=== PATIENT | female | born 1985 | race Caucasian/White ===

== ENCOUNTER 2019-10-03 11:47 | Emergency (ER) | payer MEDICAID ==
--- NOTE | 2019-10-03 12:33 | ED Physician Documentation ---
History of Present Illness - Stated complaint Stated Complaint: FACIAL SWELLING/VOMITING - Chief complaint Chief Complaint: Heent - Additonal information Additional information: This is a 34-year-old female who presents with right facial swelling. This is been ongoing for about a week. She noted some swelling along her upper gums. She stabbed this with a needle, and she has some drainage of pus. She has not been on any antibiotics. She does have some poor dentition on the right upper mouth which he thinks was a source of this infection. Her swelling in her face is actually gone down over the last day or 2, but has persisted. She has some tenderness throughout her face. No fever. Review of Systems Constitutional: reports: Fever Eyes: denies: Loss of vision Throat: reports: Dental pain / toothache Respiratory: denies: Dyspnea Skin: reports: Rash PD PAST MEDICAL HISTORY - Past Medical History Psych: Anxiety - Past Surgical History HEENT: Tonsil/Adenoidectomy - Present Medications Home Medications: Ambulatory Orders Medication Instructions Recorded Confirmed Chlorhexidine Gluconate [Peridex] 15 ml MM BID 7 Days #1 mouthwash 10/03/19 Clindamycin HCl [Clindamycin 300MG 300 mg PO Q6H #40 capsule 10/03/19 CAP] - Social History Does the pt smoke?: Yes Smoking Status: Current every day smoker Substance Use and Type: Other (Past meth and heroin use) PD ED PE NORMAL - Vitals Vital signs reviewed: Yes - General General: Alert and oriented X 3 - HEENT HEENT: Other (Facial swelling from just below the inferior right orbit down to the edge of the right mouth. there is a gingival abscess along the upper anterior gingiva with no spontaneous drainage. There is tooth decay in multiple locations. Patient has excellent range of motion of her neck, and opening closing of her jaw without trismus.) - Cardiac Cardiac: RRR - Respiratory Respiratory: No respiratory distress - Neuro Neuro: Alert and oriented X 3 Results - Vitals Vitals: Vital Signs - 24 hr 10/03/19 10/03/19 11:51 12:54 Temperature 36.5 C 36.8 C Heart Rate 78 81 Respiratory 16 18 Rate Blood Pressure 121/68 111/67 O2 Saturation 96 96 Oxygen O2 Source Room air Procedures - Abscess I&D (location) R upper gingiva Preparation: Lidocaine 1% Incision: Incised with scalpel, Purulent drainage, Loculations broken Other: Pt tolerated well, Antibiotic prescribed PD MEDICAL DECISION MAKING - ED course Complexity details: considered differential (Cellulitis, abscess, dental abscess, deep space infection) ED course: Pt is non-toxic, afebrile with normal vital signs, has an obvious gingival a bscess and facial cellulitis but no pain with ROM of the neck, no trismus, soft tongue and submandibular tissues, uvula is midline, no pain with eye movements to suggest more serious infection such as tray's, deep space infection, OIL EXPLORATION ENGINEER, or orbital cellulitis. Abscess was drained as noted above and patient tolerated this well. She was started on clindamycin and first dose given here. Peridex and clindamycin were prescribed and I reviewed strict return precautions including recheck within 24 hours unless patient is having significant improvement. Pt agreed to this plan and was discharged in the care of her mother. Departure - Departure Disposition: 01 Home, Self Care Clinical Impression: Gingival abscess Condition: Good Instructions: ED Dental Abscess Facial Cellulitis Follow-Up: Your,PCP and Dentist [Other] Prescriptions: Chlorhexidine Gluconate [Peridex] 15 ml MM BID 7 Days #1 mouthwash Clindamycin HCl [Clindamycin 300MG CAP] 300 mg PO Q6H #40 capsule Comments: You were seen today for an abscess along your gums. Please take the entire antibiotic as prescribed and use the Peridex mouthwash. If your symptoms are not improving tomorrow, or if they are worsening, return to the emergency department within 24 hours for a recheck. Also return if you are having difficulty moving your neck, pain with swallowing, fever, or other concerning symptoms. Please follow-up with your primary care provider and your dentist as soon as possible Discharge Date/Time: 10/03/19 13:42
[2019-10-03] MEDS ORDERED: CLINDAMYCIN 150 MG CAPSULE PO STA (12:50)
[2019-10-03] MEDS ORDERED: LIDOCAINE 1% 2 ML VIAL SUBQ STA (12:50)
[2019-10-03 12:55] VITALS: BP 111/67
== END 2019-10-03 13:42 | disposition home or self-care (01) ==
LOC: ED 11:47
DX: K05.319 Chronic periodontitis, localized, unspecified severity (principal); L03.211 Cellulitis of face; K02.9 Dental caries, unspecified
CPT/HCPCS: 41800; 99282; 99283; A9270

== ENCOUNTER 2020-04-04 02:46 | Outpatient (CLI) | payer MEDICAID | END 2020-04-04 02:47 | disposition EMS.NT | LOC: EMS 02:46 | PROVIDERS: ATTEND Surgery | DX: R41.82 Altered mental status, unspecified (principal) ==

== ENCOUNTER 2020-04-10 22:01 | Emergency (ER) | payer MEDICAID ==
[2020-04-10] MEDS ORDERED: AMOXICILLIN 250 MG CAPSULE PO STA (22:23)
--- NOTE | 2020-04-10 22:25 | ED Physician Documentation ---
PD HPI HEENT - Stated complaint Stated Complaint: RT SIDE FACE/JAW PX - Chief complaint Chief Complaint: Heent - History obtained from History obtained from: Patient - History of Present Illness Timing - onset: Other (She presents with dental pain, she is a vacillating and tangential historian. She says is been going on for years but also says she has a dental appointment tomorrow. Pain is of the upper right teeth and radiates to the right ear. She admits to using methamphetamines to make her feel good. She says that the only thing that takes away the pain.) Review of Systems Constitutional: denies: Fever, Chills Nose: denies: Rhinorrhea / runny nose, Congestion Throat: denies: Sore throat PD PAST MEDICAL HISTORY - Past Medical History Psych: Anxiety - Past Surgical History Past Surgical History: Yes HEENT: Tonsil/Adenoidectomy - Present Medications Home Medications: Ambulatory Orders Medication Instructions Recorded Confirmed Chlorhexidine Gluconate [Peridex] 15 ml MM BID 7 Days #1 mouthwash 10/03/19 Clindamycin HCl [Clindamycin 300MG 300 mg PO Q6H #40 capsule 10/03/19 CAP] Amoxicillin 500 mg PO TID #30 capsule 04/10/20 - Allergies Allergies/Adverse Reactions: Allergies Allergy/AdvReac Type Severity Reaction Status Date / Time No Known Drug Allergies Allergy Verified 04/10/20 22:06 - Social History Does the pt smoke?: Yes Smoking Status: Current every day smoker Does the pt drink ETOH?: Yes Does the pt have substance abuse?: Yes PD ED PE NORMAL - Vitals Vital signs reviewed: Yes - General General: Other (She is alert, mildly delusional. She is a tangential historian.) - HEENT HEENT: Other (Generally poor dentition, no tenderness or swelling. No trismus. TMs are normal.) - Neck Neck: Supple, no meningeal sign, No bony TTP - Neuro Neuro: Alert and oriented X 3, Normal speech Results - Vitals Vitals: Vital Signs - 24 hr 04/10/20 22:06 Temperature 36.6 C Heart Rate 85 Respiratory 14 Rate Blood Pressure 130/100 H O2 Saturation 100 Oxygen O2 Source Room air PD MEDICAL DECISION MAKING - ED course ED course: 34-year-old woman presents with dental pain of unclear chronicity. She admits to being high on methamphetamines. She denies that this is a problem for her and declines to stay in the emergency department to talk to the social sciences research scientist about it. Departure - Departure Disposition: 01 Home, Self Care Clinical Impression: Pain due to dental caries, Methamphetamine intoxication Condition: Good Record reviewed to determine appropriate education?: Yes Instructions: Abuse Meth Abuse and Addiction, ED Tooth Pain Prescriptions: Amoxicillin 500 mg PO TID #30 capsule Comments: You were seen today for a dental infection which appears fairly mild, my understanding is you have an appointment with a dentist tomorrow which you should keep. You also apparently are high on methamphetamines. I have offered to have you stay in the emergency department to talk to the social sciences research scientist which you declined. You stated that you do not want any help with your methamphetamine abuse. I hope you reconsider someday. The methamphetamines are Making your mind mush.
[2020-04-10 22:49] VITALS: BP 138/103
== END 2020-04-10 22:46 | disposition home or self-care (01) ==
LOC: ED 22:01
DX: K02.9 Dental caries, unspecified (principal); K04.7 Periapical abscess without sinus; F15.929 Other stimulant use, unspecified with intoxication, unspecified; F17.200 Nicotine dependence, unspecified, uncomplicated
CPT/HCPCS: 99282; 99283; A9270

== ENCOUNTER 2020-04-11 14:41 | Outpatient (CLI) | payer MEDICAID | END 2020-04-11 14:42 | disposition critical access hospital (66) | LOC: EMS 14:41 | PROVIDERS: ATTEND Surgery | DX: R46.89 Other symptoms and signs involving appearance and behavior (principal); R44.1 Visual hallucinations | CPT/HCPCS: A0425; A0429; A0999 ==

== ENCOUNTER 2020-04-11 14:56 | Observation (INO) | payer MEDICAID ==
--- NOTE | 2020-04-11 15:02 | ED Physician Documentation ---
PD HPI MHE - Stated complaint Stated Complaint: MHE - History obtained from History obtained from: Patient, EMS - History of Present Illness Primary symptom: Other (34-year-old woman brought in by ambulance because she was wandering in the street today. I saw her last night for dental pain which time she admitted to methamphetamine use but did not want any help with it. Today I guess she was wandering in the street and acting odd. For me she is minimally verbal, she is just staring a lot, she was more verbal last night. No significant history is available from the patient.) Review of Systems Unable to obtain: Confused PD PAST MEDICAL HISTORY - Past Medical History Psych: Anxiety - Past Surgical History Past Surgical History: Yes HEENT: Tonsil/Adenoidectomy - Allergies Allergies/Adverse Reactions: Allergies Allergy/AdvReac Type Severity Reaction Status Date / Time No Known Drug Allergies Allergy Verified 04/11/20 16:07 - Social History Does the pt smoke?: Yes Smoking Status: Current every day smoker Does the pt drink ETOH?: Yes Does the pt have substance abuse?: Yes PD ED PE NORMAL - Vitals Vital signs reviewed: Yes - General General: Other (Intense tearing, wandering in the halls, does cooperate with exam now.) - HEENT HEENT: PERRL, EOMI - Neck Neck: Supple, no meningeal sign, No bony TTP - Cardiac Cardiac: RRR, No murmur - Respiratory Respiratory: No respiratory distress, Clear bilaterally - Abdomen Abdomen: Normal bowel sounds, Soft, Non tender - Back Back: No CVA TTP, No spinal TTP - Derm Derm: Normal color - Extremities Extremities: No deformity, No tenderness to palpate - Neuro Neuro: No motor deficit, No sensory deficit, Other (Normal gait) Results - Vitals Vitals: Vital Signs - 24 hr 04/11/20 14:56 Temperature 36.2 C L Heart Rate 112 H Respiratory 16 Rate Blood Pressure 126/79 O2 Saturation 99 Oxygen O2 Source Room air - Labs Labs: Laboratory Tests 04/11/20 04/11/20 04/11/20 15:02 15:35 15:35 WBC 12.2 H RBC 4.67 Hgb 14.4 Hct 43.3 MCV 92.7 MCH 30.8 MCHC 33.3 RDW 16.4 H Plt Count 317 MPV 9.5 Neut # (Auto) 8.4 H Lymph # (Auto) 2.7 Saunders # (Auto) 0.8 Eos # (Auto) 0.1 Baso # (Auto) 0.1 Absolute Nucleated RBC 0.00 Nucleated RBC % 0.0 Sodium 134 L Potassium 4.2 Chloride 93 L Carbon Dioxide 28 Anion Gap 13.0 BUN 14 Creatinine 1.9 H Estimated GFR (MDRD) 31 L Glucose 88 Calcium 10.2 Total Bilirubin 1.1 H AST 99 H ALT 65 H Alkaline Phosphatase 57 Total Creatine Kinase 1408 H* Total Protein 8.9 H Albumin 5.2 Globulin 3.7 Albumin/Globulin Ratio 1.4 Lipase 25 Salicylates < 6.0 Urine Opiates Screen POSITIVE H Ur Oxycodone Screen NEGATIVE Urine Methadone Screen NEGATIVE Ur Propoxyphene Screen NEGATIVE Acetaminophen < 10 L Ur Barbiturates Screen NEGATIVE Ur Tricyclics Screen NEGATIVE Ur Phencyclidine Scrn NEGATIVE Ur Amphetamine Screen POSITIVE H U Methamphetamines Scrn POSITIVE H U Benzodiazepines Scrn NEGATIVE Urine Cocaine Screen NEGATIVE U Cannabinoids Screen NEGATIVE Ethyl Alcohol < 5.0 PD MEDICAL DECISION MAKING - ED course ED course: 34-year-old woman found wandering the streets apparently high on methamphetamines, not a great historian. Wandering around the department but cooperative. Found to be in rhabdomyolysis with elevated creatinine. Spoke with Dr. Toribio for observation at 4:06 PM. Departure - Departure Disposition: ED Place in Observation Clinical Impression: Methamphetamine intoxication Rhabdomyolysis Qualifiers: Rhabdomyolysis type: non-traumatic Qualified Code(s): M62.82 - Rhabdomyolysis Condition: Serious
[2020-04-11 15:29] LABS: MUDS CUTOFF CONCENTRATIONS CUTOFF CONC BELOW:
[2020-04-11 15:40] LABS: BASOPHILS # (AUTO) 0.1 10^3/uL (0.0-0.1); BASOPHILS % (AUTO) 0.7 %; EOSINOPHILS # (AUTO) 0.1 10^3/uL (0.0-0.7); EOSINOPHILS % (AUTO) 0.5 %; HGB - HEMOGLOBIN 14.4 g/dL (12.0-16.0); LYMPHOCYTES # (AUTO) 2.7 10^3/uL (1.5-3.5); LYMPHOCYTES % (AUTO) 22.4 %; MEAN CORPUSCULAR HEMOGLOBIN 30.8 pg (27.0-31.0); MEAN CORPUSCULAR HGB CONC 33.3 g/dL (32.0-36.0); MEAN CORPUSCULAR VOLUME 92.7 fL (81.0-99.0); MEAN PLATELET VOLUME 9.5 fL (7.9-10.8); MONOCYTES # (AUTO) 0.8 10^3/uL (0.0-1.0); MONOCYTES % (AUTO) 6.6 %; NEUTROPHILS # (AUTO) 8.4 10^3/uL (1.5-6.6); NEUTROPHILS % (AUTO) 69.1 %; PLT - PLATELET COUNT 317 10^3/uL (130-450); RED BLOOD COUNT 4.67 10^6/uL (4.20-5.40); RED CELL DISTRIBUTION WIDTH 16.4 % (12.0-15.0); WHITE BLOOD COUNT 12.2 x10^3/uL (4.8-10.8)
[2020-04-11 15:44] LABS: AMPHETAMINE SCREEN,URINE POSITIVE (NEGATIVE); BENZODIAZEPINES SCREEN, URINE NEGATIVE (NEGATIVE); COCAINE SCREEN URINE NEGATIVE (NEGATIVE); METHADONE SCREEN, URINE NEGATIVE (NEGATIVE); METHAMPHETAMINES SCREEN, URINE POSITIVE (NEGATIVE); OPIATE SCREEN, URINE POSITIVE (NEGATIVE); OXYCODONE SCREEN, URINE NEGATIVE (NEGATIVE); PROPOXYPHENE SCREEN, URINE NEGATIVE (NEGATIVE); TRICYCLIC ANTIDEPRESSANT,URINE NEGATIVE (NEGATIVE)
[2020-04-11 16:05] LABS: ACETAMINOPHEN < 10 ug/mL (10-30); ALBUMIN 5.2 g/dL (3.2-5.5); ALBUMIN/GLOBULIN RATIO 1.4 (1.0-2.2); ALKALINE PHOSPHATASE 57 IU/L (42-121); ALT ALANINE AMINOTRANSFERASE 65 IU/L (10-60); AST ASPARTATE AMINOTRANSFERASE 99 IU/L (10-42); BILIRUBIN,TOTAL 1.1 mg/dL (0.2-1.0); BUN - BLOOD UREA NITROGEN 14 mg/dL (6-20); CALCIUM 10.2 mg/dL (8.5-10.3); CARBON DIOXIDE - CO2 28 mmol/L (21-32); CHLORIDE 93 mmol/L (101-111); CREATININE 1.9 mg/dL (0.4-1.0); GLUCOSE 88 mg/dL (70-100); LIPASE 25 U/L (22-51); SALICYLATE < 6.0 mg/dL; SODIUM 134 mmol/L (135-145); TOTAL PROTEIN 8.9 g/dL (6.7-8.2)
[2020-04-11 16:07] LABS: CK- CREATINE KINASE 1408 IU/L (22-269)
[2020-04-11] MEDS ORDERED: SODIUM CHLORIDE 0.9% 1,000 ML IV STA ×2 (16:07)
[2020-04-11] MEDS ORDERED: ONDANSETRON 4 MG/2 ML VIAL IVP PRN (16:09)
[2020-04-11] MEDS ORDERED: ACETAMINOPHEN 325 MG TABLET PO PRN (16:09)
[2020-04-11] MEDS ORDERED: LACTATED RINGERS 1,000 ML IV ONE (16:12)
[2020-04-11] MEDS ORDERED: LORazepam 2 MG/ML VIAL IM STA (16:16)
--- NOTE | 2020-04-11 16:19 | HISTORY & PHYSICAL EXAMINATION ---
Chief Complaint - Chief Complaint Chief Complaint: I have something in belly History of Present Illness - Admitted From Admitted From:: Home - History Obtained From Records Reviewed: Yes History obtained from: ER Physician, EMR Exam Limitations: She is very tangential and a poor historian. - History of Present Illness HPI Comment/Other: This is a 34-year-old female with history of methamphetamine abuse who presents today after being found wandering in the streets. History is obtained from the emergency room provider and the EMR as the patient is unable to provide a history as her speech is quite tangential and she is a poor historian. She was seen in the emerge department last night for dental pain at that time she is found to be intoxicated as well. She was prescribed amoxicillin for possible dental infection. She returns today to the emergency department after she was found wandering in the streets. She has been walking around the emergency department. She has not been aggressive or agitated. He states that she is here in the hospital because there is something in her belly that needs to come out. She reports using meth yesterday but denies any use today. She does not inject and reports only smoking it. She states she does want to quit. She denies any chest pain, dyspnea, abdominal pain. Reports smoking a pack of cigarettes a day. Denies alcohol use. She currently reports no dental pain. In the emergency department, initial vital signs showed she was afebrile temperature of 36.2 C. She was tachycardic with a heart of 112. Her blood pressure is 126/79. She was not tachypneic and saturating well on room air. Labs revealed a white count of 12.2. Her sodium was decreased at 134. Her creatinine is elevated at 1.9. Her LFTs are slightly elevated. CKs were elevated at 1400. Urine toxicology was positive for methamphetamines and opiates. Tylenol, alcohol and salicylates were negative. Given the acute kidney injury and rhabdomyolysis, medicine was consulted for admission. History - Past Medical History Psych: reports: Anxiety Other Past Medical History: Methamphetamine abuse - Past Surgical History HEENT: reports: Tonsil/Adenoidectomy - Family & Social History Family History Comment/Other: Believes her brother and mother are healthy. Living arrangement: At home Living Situation: With family Social History Notes: He lives at home with her brother and mother. She states she works at [employer]. Reports smoking a pack a day since the age of 16. Denies alcohol use. Reports methamphetamine use with last use being yesterday April 10. Denies any other drug use. - Substance History Abuse: Recurrent use of substance despite neg consequences: Amphetamine Abuse Issues: Intoxication Meds/Allgy - Allergies Allergies/Adverse Reactions: Allergies Allergy/AdvReac Type Severity Reaction Status Date / Time No Known Drug Allergies Allergy Verified 04/11/20 16:07 Review of Systems - Cardiovascular Cariovascular: denies: Chest pain - Respiratory Respiratory: denies: SOB at rest - Gastrointestinal Gastrointestinal: denies: Abdominal pain - Musculoskeletal Musculoskeletal: denies: Muscle pain - Psychiatric Psychiatric: reports: Hallucinations - All Other Systems All Other Systems: reports: Other (Review of systems is limited given she is a poor historian and does not answer questions and is quite tangential.) Prior Level of Functionality: She is independent with her ADLs. Exam - Vital Signs Vital Signs: Vital Signs x48h Temp Pulse Resp BP Pulse Ox 04/11/20 14:56 36.2 C L 112 H 16 126/79 99 - Physical Exam General Appearance: positive: No acute distress, Other (She is in a euphoric state walking around the emergency department. She is not combative or aggressive.) Extremities: positive: Full ROM Neurologic/Psychiatric: positive: Other (She has pressured speech and tangential thoughts. No focal deficits on exam.) Conclusion/Plan - Problem List (1) Methamphetamine intoxication Conclusion/Plan: She is clearly intoxicated and presents with euphoria, hallucinations, and tangential speech. She also has rhabdomyolysis secondary to the methamphetamines. Urine drug screen is also positive for opiates. Will use IV lorazepam as needed for agitation. Consult social work to help address her methamphetamine abuse. (2) Rhabdomyolysis Conclusion/Plan: Secondary to methamphetamines. CKs elevated at 1400. She also has acute kidney injury. Hydrated with lactated Ringer's at 200 mL an hour. We will administer 2 L of crystalloid. Trend her CKs. Qualifiers: Rhabdomyolysis type: non-traumatic Qualified Code(s): M62.82 - Rhabdomyolysis (3) Acute kidney injury Conclusion/Plan: Secondary to her rhabdomyolysis. Her creatinine is elevated at 1.9. There is no prior baseline available. Continue with aggressive hydration. (4) Transaminitis Conclusion/Plan: LFTs are slightly elevated and this likely due to the rhabdomyolysis as well as her methamphetamine use. We will trend her LFTs. If they rise, will obtain acute hepatitis panel. (5) Leukocytosis Conclusion/Plan: This is likely reactive due to her methamphetamine intoxication. We will monitor for fever and recheck a white count tomorrow. (6) Pain due to dental caries Conclusion/Plan: She was started on amoxicillin yesterday in the emergency department for possible dental infection. We will continue her on Augmentin twice daily for the time being until we can obtain a more reliable history. - Lab Results Lab results reviewed: Yes Fish Bones: 04/11/20 15:35 04/11/20 15:35 Core Measures - Anticipated LOS I expect patient to be DC'd or transferred within 96 hours.: Yes - Issues Hospital Issues and Management Plan: 34-year-old female presents with acute methamphetamine intoxication found to have rhabdomyolysis and acute kidney injury. She will be admitted for IV fluids. - DVT/VTE - Prophylaxis VTE/DVT Device ordered at admit?: Yes VTE/DVT Prophylaxis med ordered at admit?: Yes
[2020-04-11] MEDS ORDERED: OLANZapine 10 MG VIAL IM STA (16:52)
[2020-04-11] MEDS: LORazepam 2 MG/ML VIAL IVP PRN ×2 (20:45→21:43)
[2020-04-11] MEDS: AMOX/CLAV 875 MG/125 MG TABLET PO SCH (21:34)
[2020-04-11] MEDS: HEPARIN 5,000 UNIT/ML VIAL SUBQ SCH (21:36)
[2020-04-11] MEDS: LACTATED RINGERS 1,000 ML IV SCH (21:40)
[2020-04-11] MEDS: SODIUM CHLORIDE FLUSH 0.9% 10 ML SYRINGE IVP SCH (21:41)
[2020-04-12] MEDS: LORazepam 2 MG/ML VIAL IVP PRN ×3 (00:38→05:40)
[2020-04-12] MEDS: SODIUM CHLORIDE FLUSH 0.9% 10 ML SYRINGE IVP SCH ×3 (00:41→18:04)
[2020-04-12] MEDS: SODIUM CHLORIDE FLUSH 0.9% 10 ML SYRINGE IVP PRN ×2 (01:10→05:41)
[2020-04-12] MEDS: LACTATED RINGERS 1,000 ML IV SCH ×5 (02:41→18:04)
[2020-04-12 06:48] LABS: BASOPHILS # (AUTO) 0.1 10^3/uL (0.0-0.1); BASOPHILS % (AUTO) 0.6 %; EOSINOPHILS # (AUTO) 0.2 10^3/uL (0.0-0.7); EOSINOPHILS % (AUTO) 1.6 %; HGB - HEMOGLOBIN 12.4 g/dL (12.0-16.0); LYMPHOCYTES # (AUTO) 5.1 10^3/uL (1.5-3.5); LYMPHOCYTES % (AUTO) 49.2 %; MEAN CORPUSCULAR HGB CONC 31.9 g/dL (32.0-36.0); MEAN CORPUSCULAR VOLUME 94.2 fL (81.0-99.0); MEAN PLATELET VOLUME 9.5 fL (7.9-10.8); MONOCYTES # (AUTO) 0.5 10^3/uL (0.0-1.0); MONOCYTES % (AUTO) 4.9 %; NEUTROPHILS # (AUTO) 4.5 10^3/uL (1.5-6.6); NEUTROPHILS % (AUTO) 43.1 %; PLT - PLATELET COUNT 207 10^3/uL (130-450); RED BLOOD COUNT 4.13 10^6/uL (4.20-5.40); RED CELL DISTRIBUTION WIDTH 16.4 % (12.0-15.0); WHITE BLOOD COUNT 10.5 x10^3/uL (4.8-10.8)
--- NOTE | 2020-04-12 06:58 | PHARMACY PROGRESS NOTE ---
- Best Possible Medication History Admit Date and Time: 04/11/20 1609 Processed by: Pharmacy Medication History completed: Yes Secondary Source(s): Pharmacy records, Insurance records As the person ultimately responsible for medication therapy, providers are able to order a medication from an existing home medication list in [facility] via the "Reconcile Routine" prior to Confirmation of that medication by community support associate. Such practice is discouraged except when the physician, in their clinical judgment, deems that a medical need exists for a medication without regard to previous use.
[2020-04-12 07:12] LABS: ALBUMIN 3.6 g/dL (3.2-5.5); BILIRUBIN,DIRECT 0.1 mg/dL (0.1-0.5); BILIRUBIN,TOTAL 0.8 mg/dL (0.2-1.0); CALCIUM 8.6 mg/dL (8.5-10.3); CREATININE 1.3 mg/dL (0.4-1.0); TOTAL PROTEIN 6.3 g/dL (6.7-8.2)
[2020-04-12] MEDS: HEPARIN 5,000 UNIT/ML VIAL SUBQ SCH ×2 (08:05→20:47)
[2020-04-12] MEDS: AMOX/CLAV 875 MG/125 MG TABLET PO SCH ×2 (08:05→20:48)
[2020-04-12 08:23] LABS: DIFFERENTIAL COMMENT MANUAL=AUTO DIFF; PLATELET ESTIMATE, MANUAL NORMAL (130-450,000) (NORMAL); PLATELET MORPHOLOGY NORMAL APPEARANCE (NORMAL); RBC MORPHOLOGY (MULTIPLE) 1+ HYPOCHROMASIA (NORMAL)
[2020-04-12] MEDS ORDERED: LEVOTHYROXINE 100 MCG TABLET PO SCH (10:00)
--- NOTE | 2020-04-12 10:42 | PROVIDER PROGRESS NOTE ---
Subjective - Prog Note Date Prog Note Date: 04/12/20 - Subjective Subjective: She was having hallucinations overnight and was roaming the hallways. She did receive Ativan to help sedate her. Morning, she is falling asleep as I talk to her but then will quickly wake up. She is tearful at times. She is requesting putting and is excited to eat breakfast. She denies pain. Current Medications - Current Medications Current Medications: Active Medications Acetaminophen (Tylenol) 650 mg PO Q4HR PRN PRN Reason: Pain 1 to 4 Amoxicillin/Clavulanate Potassium (Augmentin 875/125) 1 tab PO BID [facility] [place] Last Admin: 04/12/20 08:05 Dose: 1 tab Heparin Sodium (Porcine) () 5,000 unit SUBQ BID [facility] [place] Last Admin: 04/12/20 08:05 Dose: 5,000 unit Lactated Ringer's (Lr) 1,000 mls @ 200 mls/hr IV .Q5H [facility] [place] Last Admin: 04/12/20 08:06 Dose: 200 mls/hr Lorazepam (Ativan Inj (Vial)) 1 mg IVP Q4H PRN PRN Reason: Agitation Last Admin: 04/12/20 05:40 Dose: 1 mg Lorazepam (Ativan Inj (Vial)) 3 mg IVP Q3H PRN PRN Reason: Agitation Last Admin: 04/12/20 00:38 Dose: 3 mg Ondansetron HCl (Zofran Inj) 4 mg IVP Q6HR PRN PRN Reason: Nausea / Vomiting Sodium Chloride (Normal Saline Flush 0.9%) 10 ml IVP PRN PRN PRN Reason: NEEDED PER PROVIDER ORDERS Last Admin: 04/12/20 05:41 Dose: 10 ml Sodium Chloride (Normal Saline Flush 0.9%) 10 ml IVP 0100,0900,1700 [facility] [place] Last Admin: 04/12/20 08:07 Dose: Not Given No Known Home Medications 04/12/20 Objective - Vital Signs/Intake & Output Reviewed Vital Signs: Yes Vital Signs: Vital Signs x48h Pulse Resp BP Pulse Ox 04/12/20 09:00 80 18 118/79 95 04/12/20 05:00 70 16 95/70 94 Intake & Output: Intake & Output 04/09/20 04/10/20 04/11/20 04/12/20 23:59 23:59 23:59 23:59 Intake Total 4166.667 2012.333 Output Total 1300 500 Balance 2866.667 1513.333 - Objective General Appearance: positive: Lethargic, Other (She is lethargic and does fall asleep easily but will also wake up when she is spoken to. Her speech is slow at times.) Eyes Bilateral: positive: Normal inspection Respiratory: positive: No respiratory distress Cardiovascular: negative: Tachycardia Extremities: positive: No pedal edema. negative: Amparo's sign/cords Neurologic/Psychiatric: positive: Other (He has no focal motor deficits is mo ving all 4 extremities. She is tearful at times with a depressed mood. No clonus.) - Lab Results Fish Bones: 04/12/20 06:36 04/12/20 06:36 Other Labs: Lab Results x24hrs 04/12/20 04/12/20 04/11/20 Range/Units 06:36 06:36 15:35 WBC 10.5 (4.8-10.8) x10^3/uL RBC 4.13 L (4.20-5.40) 10^6/uL Hgb 12.4 (12.0-16.0) g/dL Hct 38.9 (37.0-47.0) % MCV 94.2 (81.0-99.0) fL MCH 30.0 (27.0-31.0) pg MCHC 31.9 L (32.0-36.0) g/dL RDW 16.4 H (12.0-15.0) % Plt Count 207 (130-450) 10^3/uL MPV 9.5 (7.9-10.8) fL Neut # (Auto) 4.5 (1.5-6.6) 10^3/uL Lymph # (Auto) 5.1 H (1.5-3.5) 10^3/uL [place] # (Auto) 0.5 (0.0-1.0) 10^3/uL Eos # (Auto) 0.2 (0.0-0.7) 10^3/uL Baso # (Auto) 0.1 (0.0-0.1) 10^3/uL Absolute Nucleated RBC 0.00 x10^3/uL Band Neuts % (Manual) Not Reportable Abnorm Lymph % (Manual) Not Reportable Nucleated RBC % 0.0 /100WBC Neutrophils # (Manual) Not Reportable Lymphocytes # (Manual) Not Reportable Monocytes # (Manual) Not Reportable Eosinophils # (Manual) Not Reportable Basophils # (Manual) Not Reportable Differential Comment MANUAL=AUTO DIFF Manual Slide Review Indicated WBC Morphology 1+ REACTIVE LYMPHS (NORMAL) Platelet Estimate NORMAL (130-450,000) (NORMAL) Platelet Morphology NORMAL APPEARANCE (NORMAL) RBC Morph Micro Appear 1+ HYPOCHROMASIA (NORMAL) Sodium 137 (135-145) mmol/L Potassium 4.6 (3.5-5.0) mmol/L Chloride 104 (101-111) mmol/L Carbon Dioxide 27 (21-32) mmol/L Anion Gap 6.0 (6-13) BUN 11 (6-20) mg/dL Creatinine 1.3 H (0.4-1.0) mg/dL Estimated GFR (MDRD) 47 L (>89) Glucose 102 H (70-100) mg/dL Calcium 8.6 (8.5-10.3) mg/dL Phosphorus 3.0 (2.5-4.6) mg/dL Magnesium 2.0 (1.7-2.8) mg/dL Total Bilirubin 0.8 (0.2-1.0) mg/dL Direct Bilirubin 0.1 (0.1-0.5) mg/dL AST 112 H (10-42) IU/L ALT 55 (10-60) IU/L Alkaline Phosphatase 45 (42-121) IU/L Total Creatine Kinase 2765 H* (22-269) IU/L Total Protein 6.3 L (6.7-8.2) g/dL Albumin 3.6 (3.2-5.5) g/dL Globulin 2.7 (2.1-4.2) g/dL Albumin/Globulin Ratio (1.0-2.2) Lipase (22-51) U/L TSH 215.89 H (0.34-5.60) uIU/mL Salicylates mg/dL Urine Opiates Screen (NEGATIVE) Ur Oxycodone Screen (NEGATIVE) Urine Methadone Screen (NEGATIVE) Ur Propoxyphene Screen (NEGATIVE) Acetaminophen (10-30) ug/mL Ur Barbiturates Screen (NEGATIVE) Ur Tricyclics Screen (NEGATIVE) Ur Phencyclidine Scrn (NEGATIVE) Ur Amphetamine Screen (NEGATIVE) U Methamphetamines Scrn (NEGATIVE) U Benzodiazepines Scrn (NEGATIVE) Urine Cocaine Screen (NEGATIVE) U Cannabinoids Screen (NEGATIVE) Ethyl Alcohol mg/dL 04/11/20 04/11/20 04/11/20 Range/Units 15:35 15:35 15:02 WBC 12.2 H (4.8-10.8) x10^3/uL RBC 4.67 (4.20-5.40) 10^6/uL Hgb 14.4 (12.0-16.0) g/dL Hct 43.3 (37.0-47.0) % MCV 92.7 (81.0-99.0) fL MCH 30.8 (27.0-31.0) pg MCHC 33.3 (32.0-36.0) g/dL RDW 16.4 H (12.0-15.0) % Plt Count 317 (130-450) 10^3/uL MPV 9.5 (7.9-10.8) fL Neut # (Auto) 8.4 H (1.5-6.6) 10^3/uL Lymph # (Auto) 2.7 (1.5-3.5) 10^3/uL [place] # (Auto) 0.8 (0.0-1.0) 10^3/uL Eos # (Auto) 0.1 (0.0-0.7) 10^3/uL Baso # (Auto) 0.1 (0.0-0.1) 10^3/uL Absolute Nucleated RBC 0.00 x10^3/uL Band Neuts % (Manual) Abnorm Lymph % (Manual) Nucleated RBC % 0.0 /100WBC Neutrophils # (Manual) Lymphocytes # (Manual) Monocytes # (Manual) Eosinophils # (Manual) Basophils # (Manual) Differential Comment Manual Slide Review WBC Morphology (NORMAL) Platelet Estimate (NORMAL) Platelet Morphology (NORMAL) RBC Morph Micro Appear (NORMAL) Sodium 134 L (135-145) mmol/L Potassium 4.2 (3.5-5.0) mmol/L Chloride 93 L (101-111) mmol/L Carbon Dioxide 28 (21-32) mmol/L Anion Gap 13.0 (6-13) BUN 14 (6-20) mg/dL Creatinine 1.9 H (0.4-1.0) mg/dL Estimated GFR (MDRD) 31 L (>89) Glucose 88 (70-100) mg/dL Calcium 10.2 (8.5-10.3) mg/dL Phosphorus (2.5-4.6) mg/dL Magnesium (1.7-2.8) mg/dL Total Bilirubin 1.1 H (0.2-1.0) mg/dL Direct Bilirubin (0.1-0.5) mg/dL AST 99 H (10-42) IU/L ALT 65 H (10-60) IU/L Alkaline Phosphatase 57 (42-121) IU/L Total Creatine Kinase 1408 H* (22-269) IU/L Total Protein 8.9 H (6.7-8.2) g/dL Albumin 5.2 (3.2-5.5) g/dL Globulin 3.7 (2.1-4.2) g/dL Albumin/Globulin Ratio 1.4 (1.0-2.2) Lipase 25 (22-51) U/L TSH (0.34-5.60) uIU/mL Salicylates < 6.0 mg/dL Urine Opiates Screen POSITIVE H (NEGATIVE) Ur Oxycodone Screen NEGATIVE (NEGATIVE) Urine Methadone Screen NEGATIVE (NEGATIVE) Ur Propoxyphene Screen NEGATIVE (NEGATIVE) Acetaminophen < 10 L (10-30) ug/mL Ur Barbiturates Screen NEGATIVE (NEGATIVE) Ur Tricyclics Screen NEGATIVE (NEGATIVE) Ur Phencyclidine Scrn NEGATIVE (NEGATIVE) Ur Amphetamine Screen POSITIVE H (NEGATIVE) U Methamphetamines Scrn POSITIVE H (NEGATIVE) U Benzodiazepines Scrn NEGATIVE (NEGATIVE) Urine Cocaine Screen NEGATIVE (NEGATIVE) U Cannabinoids Screen NEGATIVE (NEGATIVE) Ethyl Alcohol < 5.0 mg/dL ABX Reporting Has patient been on IV antibiotics over the past 48 hours?: No Assessment/Plan - Problem List (1) Encephalopathy Impression: She is disoriented this morning I suspect is likely due to the methamphetamine use as well as the sedatives she received overnight. We will attempt to limit the use of sedatives to allow her to become more oriented. If she is agitated, we will use low-dose Ativan IV as needed. We will use sedatives if she is combative and a potential harm to herself or the staff. Continue with frequent reorientation. Will consider a one-to-one if need be. (2) Methamphetamine intoxication Impression: This is the cause of her rhabdomyolysis and is likely contributing to her encephalopathy. Social work has been consulted and mental health evaluation will be obtained once the patient is able to participate in a conversation. We will also discuss drug rehab options. (3) Rhabdomyolysis Impression: Her CKs continue to increase and they are now elevated at 2700 compared to 1400 on admission. Fortunately her renal function is improving. We will continue her on IV fluids. Qualifiers: Rhabdomyolysis type: non-traumatic Qualified Code(s): M62.82 - Rhabdomyolysis (4) Acute kidney injury Impression: This was likely secondary to rhabdomyolysis. Her creatinine was 1.9 on admission and has improved to 1.3. Continue with IV fluids and avoid nephrotoxins. (5) Hypothyroidism Impression: TSH elevated at 215. We will check a free T4. There is no evidence of myxedema coma at this time. I suspect her confusion related to her methamphetamine use and the use of sedatives. We will start her on Synthroid 100 mcg daily. (6) Transaminitis Impression: This is stable over likely related to her methamphetamine use. We will check a hepatitis panel given she told the nurse that she does have a history of IV drug use. (7) Pain due to dental caries Impression: We will keep her on Augmentin twice daily until he can obtain a better history.
[2020-04-12 11:08] LABS: BILIRUBIN,URINE NEGATIVE (NEGATIVE); GLUCOSE, URINE (UA) NEGATIVE (NEGATIVE); KETONES,URINE (UA) NEGATIVE (NEGATIVE); LEUKOCYTE ESTERASE, URINE NEGATIVE (NEGATIVE); NITRITE,URINE NEGATIVE (NEGATIVE); OCCULT BLOOD,URINE NEGATIVE (NEGATIVE); PH,URINE 6.5 PH (5.0-7.5); PROTEIN,URINE NEGATIVE (NEGATIVE); UROBILINOGEN,URINE 0.2 (NORMAL) E.U./dL (NORMAL)
[2020-04-12 11:10] LABS: CLARITY,URINE CLEAR (CLEAR); HCG UR QUAL NEGATIVE
[2020-04-12] MEDS: LEVOTHYROXINE 100 MCG TABLET PO SCH (16:46)
[2020-04-13] MEDS: LACTATED RINGERS 1,000 ML IV SCH ×5 (00:22→19:14)
[2020-04-13] MEDS: SODIUM CHLORIDE FLUSH 0.9% 10 ML SYRINGE IVP SCH ×3 (00:22→16:58)
[2020-04-13] MEDS: LEVOTHYROXINE 100 MCG TABLET PO SCH (05:27)
[2020-04-13] MEDS: AMOX/CLAV 875 MG/125 MG TABLET PO SCH ×2 (08:14→20:40)
[2020-04-13] MEDS: HEPARIN 5,000 UNIT/ML VIAL SUBQ SCH ×2 (08:14→20:40)
[2020-04-13 08:31] LABS: BASOPHILS # (AUTO) 0.1 10^3/uL (0.0-0.1); EOSINOPHILS # (AUTO) 0.2 10^3/uL (0.0-0.7); EOSINOPHILS % (AUTO) 2.4 %; HGB - HEMOGLOBIN 12.9 g/dL (12.0-16.0); LYMPHOCYTES # (AUTO) 2.5 10^3/uL (1.5-3.5); LYMPHOCYTES % (AUTO) 29.9 %; MEAN CORPUSCULAR HEMOGLOBIN 31.3 pg (27.0-31.0); MEAN CORPUSCULAR HGB CONC 33.3 g/dL (32.0-36.0); MEAN CORPUSCULAR VOLUME 93.9 fL (81.0-99.0); MEAN PLATELET VOLUME 9.3 fL (7.9-10.8); MONOCYTES # (AUTO) 0.7 10^3/uL (0.0-1.0); MONOCYTES % (AUTO) 7.9 %; NEUTROPHILS # (AUTO) 4.8 10^3/uL (1.5-6.6); NEUTROPHILS % (AUTO) 57.9 %; PLT - PLATELET COUNT 187 10^3/uL (130-450); RED BLOOD COUNT 4.12 10^6/uL (4.20-5.40); RED CELL DISTRIBUTION WIDTH 16.7 % (12.0-15.0); WHITE BLOOD COUNT 8.2 x10^3/uL (4.8-10.8)
[2020-04-13 08:44] LABS: CALCIUM 8.8 mg/dL (8.5-10.3); CREATININE 1.1 mg/dL (0.4-1.0); PHOSPHORUS 4.6 mg/dL (2.5-4.6)
--- NOTE | 2020-04-13 12:11 | PROVIDER PROGRESS NOTE ---
Subjective - Prog Note Date Prog Note Date: 04/13/20 - Subjective Subjective: She reports feeling better today. Denies any pain. She remembers going to the ER for tooth pain a few days ago. Does not recall what has happened over the past couple of days. Current Medications - Current Medications Current Medications: Active Medications Acetaminophen (Tylenol) 650 mg PO Q4HR PRN PRN Reason: Pain 1 to 4 Amoxicillin/Clavulanate Potassium (Augmentin 875/125) 1 tab PO BID [facility] Last Admin: 04/13/20 08:14 Dose: 1 tab Heparin Sodium (Porcine) () 5,000 unit SUBQ BID [facility] Last Admin: 04/13/20 08:14 Dose: 5,000 unit Lactated Ringer's (Lr) 1,000 mls @ 200 mls/hr IV .Q5H [facility] Last Infusion: 04/13/20 10:47 Dose: 200 mls/hr Levothyroxine Sodium (Synthroid) 100 mcg PO QDAC [facility] Last Admin: 04/13/20 05:27 Dose: 100 mcg Lorazepam (Ativan Inj (Vial)) 3 mg IVP Q3H PRN PRN Reason: Agitation Last Admin: 04/12/20 00:38 Dose: 3 mg Ondansetron HCl (Zofran Inj) 4 mg IVP Q6HR PRN PRN Reason: Nausea / Vomiting Sodium Chloride (Normal Saline Flush 0.9%) 10 ml IVP PRN PRN PRN Reason: NEEDED PER PROVIDER ORDERS Last Admin: 04/12/20 05:41 Dose: 10 ml Sodium Chloride (Normal Saline Flush 0.9%) 10 ml IVP 0100,0900,1700 [facility] Last Admin: 04/13/20 08:07 Dose: Not Given No Known Home Medications 04/12/20 Objective - Vital Signs/Intake & Output Reviewed Vital Signs: Yes Vital Signs: Vital Signs x48h Temp Pulse Resp BP Pulse Ox 04/13/20 11:23 36.3 C L 77 16 112/74 97 04/13/20 07:40 36.5 C 78 16 114/66 98 04/13/20 04:42 36.3 C L 88 20 111/76 95 Intake & Output: Intake & Output 04/10/20 04/11/20 04/12/20 04/13/20 23:59 23:59 23:59 23:59 Intake Total 4166.667 6002.666 2015.666 Output Total 1300 7958 2350 Balance 2866.667 3502.666 -333.334 - Objective General Appearance: positive: No acute distress, Alert Eyes Bilateral: positive: Normal inspection ENT: positive: ENT inspection nml, Other (She has poor dentition. No obvious area of erythema or swelling.) Neck: positive: Nml inspection Respiratory: positive: No respiratory distress. negative: Wheezes, Rales Cardiovascular: positive: Regular rate & rhythm, No murmur. negative: Tachycardia Abdomen: positive: Non-tender, No distention. negative: Tenderness Skin: positive: Warm, Dry Extremities: positive: Full ROM, No pedal edema Neurologic/Psychiatric: positive: Oriented x3, Motor nml. negative: Disoriented to person, Disoriented to place, Disoriented to time - Lab Results Fish Bones: 04/13/20 08:20 04/13/20 08:20 Other Labs: Lab Results x24hrs 04/13/20 04/13/20 04/13/20 Range/Units 08:20 08:20 08:20 WBC (4.8-10.8) x10^3/uL RBC (4.20-5.40) 10^6/uL Hgb (12.0-16.0) g/dL Hct (37.0-47.0) % MCV (81.0-99.0) fL MCH (27.0-31.0) pg MCHC (32.0-36.0) g/dL RDW (12.0-15.0) % Plt Count (130-450) 10^3/uL MPV (7.9-10.8) fL Neut # (Auto) (1.5-6.6) 10^3/uL Lymph # (Auto) (1.5-3.5) 10^3/uL [place] # (Auto) (0.0-1.0) 10^3/uL Eos # (Auto) (0.0-0.7) 10^3/uL Baso # (Auto) (0.0-0.1) 10^3/uL Absolute Nucleated RBC x10^3/uL Nucleated RBC % /100WBC Sodium 137 (135-145) mmol/L Potassium 3.9 (3.5-5.0) mmol/L Chloride 101 (101-111) mmol/L Carbon Dioxide 30 (21-32) mmol/L Anion Gap 6.0 (6-13) BUN 10 (6-20) mg/dL Creatinine 1.1 H (0.4-1.0) mg/dL Estimated GFR (MDRD) 58 L (>89) Glucose 78 (70-100) mg/dL Calcium 8.8 (8.5-10.3) mg/dL Phosphorus 4.6 (2.5-4.6) mg/dL Magnesium 2.0 (1.7-2.8) mg/dL Total Creatine Kinase 1566 H* (22-269) IU/L Cortisol AM Sample 19.0 ug/dL / Range/Units 08:20 WBC 8.2 (4.8-10.8) x10^3/uL RBC 4.12 L (4.20-5.40) 10^6/uL Hgb 12.9 (12.0-16.0) g/dL Hct 38.7 (37.0-47.0) % MCV 93.9 (81.0-99.0) fL MCH 31.3 H (27.0-31.0) pg MCHC 33.3 (32.0-36.0) g/dL RDW 16.7 H (12.0-15.0) % Plt Count 187 (130-450) 10^3/uL MPV 9.3 (7.9-10.8) fL Neut # (Auto) 4.8 (1.5-6.6) 10^3/uL Lymph # (Auto) 2.5 (1.5-3.5) 10^3/uL [place] # (Auto) 0.7 (0.0-1.0) 10^3/uL Eos # (Auto) 0.2 (0.0-0.7) 10^3/uL Baso # (Auto) 0.1 (0.0-0.1) 10^3/uL Absolute Nucleated RBC 0.00 x10^3/uL Nucleated RBC % 0.0 /100WBC Sodium (135-145) mmol/L Potassium (3.5-5.0) mmol/L Chloride (101-111) mmol/L Carbon Dioxide (21-32) mmol/L Anion Gap (6-13) BUN (6-20) mg/dL Creatinine (0.4-1.0) mg/dL Estimated GFR (MDRD) (>89) Glucose (70-100) mg/dL Calcium (8.5-10.3) mg/dL Phosphorus (2.5-4.6) mg/dL Magnesium (1.7-2.8) mg/dL Total Creatine Kinase (22-269) IU/L Cortisol AM Sample ug/dL Assessment/Plan - Problem List (1) Encephalopathy Impression: This has resolved. This was secondary to methamphetamine intoxication and the use of Ativan for sedation. She is now back to her baseline. (2) Methamphetamine intoxication Impression: This has since resolved. It has been over 48 hours since she used methamphetamine. She is no longer requiring Ativan IV for sedation. (3) Rhabdomyolysis Impression: This is secondary to her methamphetamine use. Her CKs are improving compared to yesterday but still remain higher than on admission. We will continue with IV hydration. Her renal function has improved. Qualifiers: Rhabdomyolysis type: non-traumatic Qualified Code(s): M62.82 - Rhabdomyolysis (4) Acute kidney injury Impression: Her creatinine was 1.9 on admission this was likely due to rhabdomyolysis. Today it is 1.1. We will continue with IV fluids given her CKs remain elevated. Continue to monitor renal function. (5) Hypothyroidism Impression: This is a new diagnosis for her this admission. Her TSH is greater than 200 and her T4 is less than 0.25. She has been started on Synthroid 100 mcg. She will need a repeat TSH in 4 to 6 weeks. (6) Transaminitis Impression: Her LFTs improved except for her AST likely due to the rhabdomyolysis. We will no longer be trending this as her CKs are improving. (7) Pain due to dental caries Impression: We will continue Augmentin for total of 5 days. She has been asked to follow-up with a dentist on an outpatient basis.
[2020-04-14] MEDS: SODIUM CHLORIDE FLUSH 0.9% 10 ML SYRINGE IVP SCH ×2 (00:13→09:34)
[2020-04-14] MEDS: LACTATED RINGERS 1,000 ML IV SCH ×3 (00:13→09:32)
[2020-04-14] MEDS: LEVOTHYROXINE 100 MCG TABLET PO SCH (06:16)
[2020-04-14] MEDS: AMOX/CLAV 875 MG/125 MG TABLET PO SCH (09:32)
[2020-04-14] MEDS: HEPARIN 5,000 UNIT/ML VIAL SUBQ SCH (09:37)
[2020-04-14 09:54] LABS: BASOPHILS % (AUTO) 0.6 %; EOSINOPHILS # (AUTO) 0.2 10^3/uL (0.0-0.7); EOSINOPHILS % (AUTO) 2.1 %; HGB - HEMOGLOBIN 12.6 g/dL (12.0-16.0); LYMPHOCYTES % (AUTO) 28.6 %; MEAN CORPUSCULAR HEMOGLOBIN 31.3 pg (27.0-31.0); MEAN CORPUSCULAR HGB CONC 33.4 g/dL (32.0-36.0); MEAN CORPUSCULAR VOLUME 93.8 fL (81.0-99.0); MEAN PLATELET VOLUME 9.7 fL (7.9-10.8); MONOCYTES # (AUTO) 0.5 10^3/uL (0.0-1.0); MONOCYTES % (AUTO) 6.7 %; NEUTROPHILS # (AUTO) 4.3 10^3/uL (1.5-6.6); NEUTROPHILS % (AUTO) 61.4 %; PLT - PLATELET COUNT 173 10^3/uL (130-450); RED BLOOD COUNT 4.02 10^6/uL (4.20-5.40); RED CELL DISTRIBUTION WIDTH 16.5 % (12.0-15.0)
[2020-04-14 10:02] LABS: CALCIUM 8.7 mg/dL (8.5-10.3); CREATININE 1.1 mg/dL (0.4-1.0); MAGNESIUM 2.1 mg/dL (1.7-2.8); PHOSPHORUS 3.8 mg/dL (2.5-4.6)
[2020-04-14] MEDS ORDERED: NICOTINE 14 MG PATCH TOP SCH (11:00)
--- NOTE | 2020-04-14 12:39 | Discharge Plan ---
Discharge Plan Problem Reviewed?: Yes Disposition: Home, Self Care Condition: Stable Prescriptions: Amox/Clav 875/125 [Augmentin 875/125] 1 tab PO BID #4 tablet Levothyroxine [Synthroid] 100 mcg PO QDAC #30 tablet Nicotine 14 mg Patch [Nicoderm] 1 patch TOP DAILY #14 patch Diet: Regular Activity Restrictions: Activity as Tolerated Instruction Topics: Hypothyroidism Myxedema Dc Health Concerns: You were seen in the hospital because you are intoxicated due to methamphetamine. This caused your muscles to breakdown which can affect your kidneys. Your kidney numbers are elevated due to this. You are treated with IV fluids which helped her kidneys and your muscle numbers have also improved. It was found that your thyroid is not functioning well and you need to take thyroid medication called Synthroid. Plan of Treatment: You have hypothyroidism so please take Synthroid 100 mcg every day in the morning. You will need to follow-up with your primary care physician to have repeat labs in 4 to 6 weeks. Care Goals: You need to take your thyroid medication as untreated hypothyroidism can cause severe illness. It is recommended you stop using methamphetamines as this can affect your heart, kidneys, liver. Your prescribed antibiotics to take 2 more days for possible tooth infection. It is recommended you follow-up with a dentist. Assessment: Patient expressed understanding of the treatment plan. No Smoking: If you smoke, Please STOP! Call for help.
--- NOTE | 2020-04-14 12:42 | DISCHARGE SUMMARY ---
"Discharge Summary Admit Date: 04/11/20 Discharge Date: 04/14/20 Discharging Provider: Gamaliel Toribio Code Status: Attempt Resuscitation Condition at Discharge: Good Discharge Disposition: 01 Home, Self Care - DIAGNOSES Admission Diagnoses: Amphetamine intoxication Rhabdomyolysis Acute kidney injury Transaminitis Leukocytosis Pain due to dental caries Discharge Diagnoses with Status of Each Condition: Methamphetamine intoxication - resolved. She was agitated on admission and required treatment with Ativan IV. She is now back to her baseline. She was c ounseled on cessation. Hypothyroidism - ongoing. This is a new diagnosis this admission. Her TSH was elevated at 216 and T4 less than 0.25. Cortisol a.m. was checked and this was normal at 19. She had no evidence of myxedema coma. She did have periorbital edema and some nonpitting edema in her bilateral hands and forearms. She was neurologically intact after she recovered from her methamphetamine intoxication. Her electrolytes were also within normal limits. This is likely contributing to her elevated CKs in addition to her methamphetamine use. She was discharged on Synthroid 100 mcg daily and she will need TSH in 4 to 6 weeks. Rhabdomyolysis - improving. This is secondary to methamphetamine use as well as possibly her hypothyroidism. Her CKs peaked at 2700. They are at 800 on discharge. She was treated with IV fluids during this hospitalization. Acute kidney injury - resolved. Creatinine is 1.9 on admission this improved with IV fluids. This was secondary to rhabdomyolysis. Her creatinine is 1.1 on discharge. Transaminitis - improving. This was likely due to methamphetamine use although her AST remained elevated likely due to the rhabdomyolysis. Given her history of drug use, hepatitis panel has been ordered and is pending. Pain due to dental caries - stable. She was seen in the ER prior to admission for dental pain and was started on amoxicillin. She was continued on Augmentin during this hospitalization. She did have some dental pain but her exam was unremarkable. She was discharged on Augmentin for 2 more days to complete 5 days of therapy. She was asked to follow-up with a dentist. - HPI History of Present Illness: This is a 34-year-old female with history of methamphetamine abuse who presents today after being found wandering in the streets. History is obtained from the emergency room provider and the EMR as the patient is unable to provide a history as her speech is quite tangential and she is a poor historian. She was seen in the emerge department last night for dental pain at that time she is found to be intoxicated as well. She was prescribed amoxicillin for possible dental infection. She returns today to the emergency department after she was found wandering in the streets. She has been walking around the emergency department. She has not been aggressive or agitated. He states that she is here in the hospital because there is something in her belly that needs to come out. She reports using meth yesterday but denies any use today. She does not inject and reports only smoking it. She states she does want to quit. She denies any chest pain, dyspnea, abdominal pain. Reports smoking a pack of cigarettes a day. Denies alcohol use. She currently reports no dental pain. In the emergency department, initial vital signs showed she was afebrile temperature of 36.2 C. She was tachycardic with a heart of 112. Her blood pressure is 126/79. She was not tachypneic and saturating well on room air. Labs revealed a white count of 12.2. Her sodium was decreased at 134. Her creatinine is elevated at 1.9. Her LFTs are slightly elevated. CKs were elevated at 1400. Urine toxicology was positive for methamphetamines and opiates. Tylenol, alcohol and salicylates were negative. Given the acute kidney injury and rhabdomyolysis, medicine was consulted for admission. - CONSULTS | PROCEDURES Consultations: Social Work - HOSPITAL COURSE Hospital Course: Admitted to the floor for acute methamphetamine intoxication that had caused rhabdomyolysis and acute kidney injury. She was treated with IV fluids. She was agitated initially and quite hyperactive and therefore she was given livia zepam IV for sedation. The patient pulled out her IV multiple times which made administering fluids difficult. Her renal function did improve with hydration but her CKs initially continued to climb. TSH was checked and this was elevated at 215.89. Her free T4 was checked which was less than 0.25. An a.m. cortisol was checked which came back at 19. He did have some periorbital edema and bilateral nonpitting edema of the hands but otherwise had no manifestations of hypothyroidism. She had no evidence of myxedema coma. She restarted on oral Synthroid 100 mcg a day. After a couple of days in the hospital, she no longer required Ativan as she was now over 48 hours of methamphetamine use. She had become quite pleasant and communicative. She was tearful at times when talking about drug use and her current medical conditions. Social work evaluate the patient given her drug abuse. She was found to have a prior history of mental health. After discussion, it was felt that she is safe to go home with her family. On discharge, her creatinine had improved to 1.1 from 1.9 on admission. Her CKs were down to 800. Patient had pulled her IV out the final day and requested to go home to be with her family. Given her CKs were down to 800, she was discharged home. We discussed the importance of follow-up and given she has not had a primary care provider, she was provided with 1 prior to discharge. I told her it is important to follow-up as she will need a repeat TSH in 4 to 6 we eks to make sure her hypothyroidism is appropriately treated. Patient expressed understanding of this. I also counseled her on the importance of methamphetamine cessation. - ALLERGIES Allergies/Adverse Reactions: Allergies Allergy/AdvReac Type Severity Reaction Status Date / Time No Known Drug Allergies Allergy Verified 04/11/20 16:07 - MEDICATIONS Home Medications: Ambulatory Orders Medication Instructions Recorded Confirmed Amox/Clav 875/125 [Augmentin 1 tab PO BID #4 tablet 04/14/20 875/125] Levothyroxine [Synthroid] 100 mcg PO QDAC #30 tablet 04/14/20 Nicotine 14 mg Patch [Nicoderm] 1 patch TOP DAILY #14 patch 04/14/20 - PHYSICAL EXAM AT DISCHARGE General Appearance: positive: No acute distress, Alert Eyes Bilateral: positive: Conjunctivae nml, Other (She does have periorbital edema.) ENT: positive: ENT inspection nml, Other (Poor denition.) Neck: positive: Nml inspection Respiratory: positive: No respiratory distress Cardiovascular: positive: Regular rate & rhythm, No murmur. negative: Tachycardia, Bradycardia Abdomen: positive: Non-tender, No distention. negative: Tenderness, Guarding, Rebound Skin: positive: Warm, Dry Extremities: positive: No pedal edema, Other (She does have nonpitting edema in her bilateral hands and forearms.) Neurologic/Psychiatric: positive: Oriented x3, Motor nml. negative: Disoriented to person, Disoriented to place, Disoriented to time Physical Exam Other/Comments: Vital Signs - 24 hr 04/13/20 04/13/20 04/14/20 20:36 23:15 05:00 Temperature 36.6 C 36.6 C 36.4 C L Heart Rate [ 77 69 66 Brachial] Respiratory 18 18 16 Rate Blood Pressure [Left Brachial artery] Blood Pressure 116/74 101/60 110/80 [Right Brachial artery] O2 Saturation 95 96 97 04/14/20 04/14/20 08:15 13:00 Temperature 36.8 C 36.6 C Heart Rate [ 69 70 Brachial] Respiratory 14 18 Rate Blood Pressure 97/55 L [Left Brachial artery] Blood Pressure 118/68 [Right Brachial artery] O2 Saturation 97 98 Oxygen O2 Source Room air - LABS Result Diagrams: 04/14/20 09:37 04/14/20 09:37 Other Lab Results: Laboratory Tests 04/11/20 04/11/20 04/11/20 15:02 15:35 15:35 WBC 12.2 H RBC 4.67 Hgb 14.4 Hct 43.3 MCV 92.7 MCH 30.8 MCHC 33.3 RDW 16.4 H Plt Count 317 MPV 9.5 Neut # (Auto) 8.4 H Lymph # (Auto) 2.7 Catron # (Auto) 0.8 Eos # (Auto) 0.1 Baso # (Auto) 0.1 Absolute Nucleated RBC 0.00 Band Neuts % (Manual) Abnorm Lymph % (Manual) Nucleated RBC % 0.0 Neutrophils # (Manual) Lymphocytes # (Manual) Monocytes # (Manual) Eosinophils # (Manual) Basophils # (Manual) Differential Comment Manual Slide Review WBC Morphology Platelet Estimate Platelet Morphology RBC Morph Micro Appear Sodium 134 L Potassium 4.2 Chloride 93 L Carbon Dioxide 28 Anion Gap 13.0 BUN 14 Creatinine 1.9 H Estimated GFR (MDRD) 31 L Glucose 88 Calcium 10.2 Phosphorus Magnesium Total Bilirubin 1.1 H Direct Bilirubin AST 99 H ALT 65 H Alkaline Phosphatase 57 Total Creatine Kinase 1408 H* Total Protein 8.9 H Albumin 5.2 Globulin 3.7 Albumin/Globulin Ratio 1.4 Lipase 25 TSH Free T4 Cortisol AM Sample Urine Color Urine Clarity Urine pH Ur Specific Vance Urine Protein Urine Glucose (UA) Urine Ketones Urine Occult Blood Urine Nitrite Urine Bilirubin Urine Urobilinogen Ur Leukocyte Esterase Ur Microscopic Review Urine Culture Comments Urine HCG, Qual Salicylates < 6.0 Urine Opiates Screen POSITIVE H Ur Oxycodone Screen NEGATIVE Urine Methadone Screen NEGATIVE Ur Propoxyphene Screen NEGATIVE Acetaminophen < 10 L Ur Barbiturates Screen NEGATIVE Ur Tricyclics Screen NEGATIVE Ur Phencyclidine Scrn NEGATIVE Ur Amphetamine Screen POSITIVE H U Methamphetamines Scrn POSITIVE H U Benzodiazepines Scrn NEGATIVE Urine Cocaine Screen NEGATIVE U Cannabinoids Screen NEGATIVE Ethyl Alcohol < 5.0 04/11/20 04/12/20 04/12/20 15:35 06:36 06:36 WBC 10.5 RBC 4.13 L Hgb 12.4 Hct 38.9 MCV 94.2 MCH 30.0 MCHC 31.9 L RDW 16.4 H Plt Count 207 MPV 9.5 Neut # (Auto) 4.5 Lymph # (Auto) 5.1 H Catron # (Auto) 0.5 Eos # (Auto) 0.2 Baso # (Auto) 0.1 Absolute Nucleated RBC 0.00 Band Neuts % (Manual) Not Reportable Abnorm Lymph % (Manual) Not Reportable Nucleated RBC % 0.0 Neutrophils # (Manual) Not Reportable Lymphocytes # (Manual) Not Reportable Monocytes # (Manual) Not Reportable Eosinophils # (Manual) Not Reportable Basophils # (Manual) Not Reportable Differential Comment MANUAL=AUTO DIFF Manual Slide Review Indicated WBC Morphology 1+ REACTIVE LYMPHS Platelet Estimate NORMAL (130-450,000) Platelet Morphology NORMAL APPEARANCE RBC Morph Micro Appear 1+ HYPOCHROMASIA Sodium 137 Potassium 4.6 Chloride 104 Carbon Dioxide 27 Anion Gap 6.0 BUN 11 Creatinine 1.3 H Estimated GFR (MDRD) 47 L Glucose 102 H Calcium 8.6 Phosphorus 3.0 Magnesium 2.0 Total Bilirubin 0.8 Direct Bilirubin 0.1 AST 112 H ALT 55 Alkaline Phosphatase 45 Total Creatine Kinase 2765 H* Total Protein 6.3 L Albumin 3.6 Globulin 2.7 Albumin/Globulin Ratio Lipase TSH 215.89 H Free T4 Cortisol AM Sample Urine Color Urine Clarity Urine pH Ur Specific Vance Urine Protein Urine Glucose (UA) Urine Ketones Urine Occult Blood Urine Nitrite Urine Bilirubin Urine Urobilinogen Ur Leukocyte Esterase Ur Microscopic Review Urine Culture Comments Urine HCG, Qual Salicylates Urine Opiates Screen Ur Oxycodone Screen Urine Methadone Screen Ur Propoxyphene Screen Acetaminophen Ur Barbiturates Screen Ur Tricyclics Screen Ur Phencyclidine Scrn Ur Amphetamine Screen U Methamphetamines Scrn U Benzodiazepines Scrn Urine Cocaine Screen U Cannabinoids Screen Ethyl Alcohol 04/12/20 04/12/20 04/13/20 06:36 10:56 08:20 WBC 8.2 RBC 4.12 L Hgb 12.9 Hct 38.7 MCV 93.9 MCH 31.3 H MCHC 33.3 RDW 16.7 H Plt Count 187 MPV 9.3 Neut # (Auto) 4.8 Lymph # (Auto) 2.5 Catron # (Auto) 0.7 Eos # (Auto) 0.2 Baso # (Auto) 0.1 Absolute Nucleated RBC 0.00 Band Neuts % (Manual) Abnorm Lymph % (Manual) Nucleated RBC % 0.0 Neutrophils # (Manual) Lymphocytes # (Manual) Monocytes # (Manual) Eosinophils # (Manual) Basophils # (Manual) Differential Comment Manual Slide Review WBC Morphology Platelet Estimate Platelet Morphology RBC Morph Micro Appear Sodium Potassium Chloride Carbon Dioxide Anion Gap BUN Creatinine Estimated GFR (MDRD) Glucose Calcium Phosphorus Magnesium Total Bilirubin Direct Bilirubin AST ALT Alkaline Phosphatase Total Creatine Kinase Total Protein Albumin Globulin Albumin/Globulin Ratio Lipase TSH Free T4 < 0.25 L Cortisol AM Sample Urine Color YELLOW Urine Clarity CLEAR Urine pH 6.5 Ur Specific Vance 1.010 Urine Protein NEGATIVE Urine Glucose (UA) NEGATIVE Urine Ketones NEGATIVE Urine Occult Blood NEGATIVE Urine Nitrite NEGATIVE Urine Bilirubin NEGATIVE Urine Urobilinogen 0.2 (NORMAL) Ur Leukocyte Esterase NEGATIVE Ur Microscopic Review NOT INDICATED Urine Culture Comments NOT INDICATED Urine HCG, Qual NEGATIVE Salicylates Urine Opiates Screen Ur Oxycodone Screen Urine Methadone Screen Ur Propoxyphene Screen Acetaminophen Ur Barbiturates Screen Ur Tricyclics Screen Ur Phencyclidine Scrn Ur Amphetamine Screen U Methamphetamines Scrn U Benzodiazepines Scrn Urine Cocaine Screen U Cannabinoids Screen Ethyl Alcohol 04/13/20 04/13/20 04/13/20 08:20 08:20 08:20 WBC RBC Hgb Hct MCV MCH MCHC RDW Plt Count MPV Neut # (Auto) Lymph # (Auto) Catron # (Auto) Eos # (Auto) Baso # (Auto) Absolute Nucleated RBC Band Neuts % (Manual) Abnorm Lymph % (Manual) Nucleated RBC % Neutrophils # (Manual) Lymphocytes # (Manual) Monocytes # (Manual) Eosinophils # (Manual) Basophils # (Manual) Differential Comment Manual Slide Review WBC Morphology Platelet Estimate Platelet Morphology RBC Morph Micro Appear Sodium 137 Potassium 3.9 Chloride 101 Carbon Dioxide 30 Anion Gap 6.0 BUN 10 Creatinine 1.1 H Estimated GFR (MDRD) 58 L Glucose 78 Calcium 8.8 Phosphorus 4.6 Magnesium 2.0 Total Bilirubin Direct Bilirubin AST ALT Alkaline Phosphatase Total Creatine Kinase 1566 H* Total Protein Albumin Globulin Albumin/Globulin Ratio Lipase TSH Free T4 Cortisol AM Sample 19.0 Urine Color Urine Clarity Urine pH Ur Specific Vance Urine Protein Urine Glucose (UA) Urine Ketones Urine Occult Blood Urine Nitrite Urine Bilirubin Urine Urobilinogen Ur Leukocyte Esterase Ur Microscopic Review Urine Culture Comments Urine HCG, Qual Salicylates Urine Opiates Screen Ur Oxycodone Screen Urine Methadone Screen Ur Propoxyphene Screen Acetaminophen Ur Barbiturates Screen Ur Tricyclics Screen Ur Phencyclidine Scrn Ur Amphetamine Screen U Methamphetamines Scrn U Benzodiazepines Scrn Urine Cocaine Screen U Cannabinoids Screen Ethyl Alcohol 04/13/20 04/14/20 04/14/20 15:50 09:37 09:37 WBC 7.0 RBC 4.02 L Hgb 12.6 Hct 37.7 MCV 93.8 MCH 31.3 H MCHC 33.4 RDW 16.5 H Plt Count 173 MPV 9.7 Neut # (Auto) 4.3 Lymph # (Auto) 2.0 Catron # (Auto) 0.5 Eos # (Auto) 0.2 Baso # (Auto) 0.0 Absolute Nucleated RBC 0.00 Band Neuts % (Manual) Abnorm Lymph % (Manual) Nucleated RBC % 0.0 Neutrophils # (Manual) Lymphocytes # (Manual) Monocytes # (Manual) Eosinophils # (Manual) Basophils # (Manual) Differential Comment Manual Slide Review WBC Morphology Platelet Estimate Platelet Morphology RBC Morph Micro Appear Sodium 137 Potassium 3.7 Chloride 101 Carbon Dioxide 29 Anion Gap 7.0 BUN 8 Creatinine 1.1 H Estimated GFR (MDRD) 58 L Glucose 93 Calcium 8.7 Phosphorus 3.8 Magnesium 2.1 Total Bilirubin Direct Bilirubin AST ALT Alkaline Phosphatase Total Creatine Kinase 1236 H* 804 H Total Protein Albumin Globulin Albumin/Globulin Ratio Lipase TSH Free T4 Cortisol AM Sample Urine Color Urine Clarity Urine pH Ur Specific Vance Urine Protein Urine Glucose (UA) Urine Ketones Urine Occult Blood Urine Nitrite Urine Bilirubin Urine Urobilinogen Ur Leukocyte Esterase Ur Microscopic Review Urine Culture Comments Urine HCG, Qual Salicylates Urine Opiates Screen Ur Oxycodone Screen Urine Methadone Screen Ur Propoxyphene Screen Acetaminophen Ur Barbiturates Screen Ur Tricyclics Screen Ur Phencyclidine Scrn Ur Amphetamine Screen U Methamphetamines Scrn U Benzodiazepines Scrn Urine Cocaine Screen U Cannabinoids Screen Ethyl Alcohol - QUALITY (Female Hip Fx Only) Was patient sent home on osteoporosis medication?: No - FOLLOW UP Follow Up: She was provided with a primary care provider prior to discharge thanks to social work. I discussed the importance of follow-up given her new diagnosis of hypothyroidism and how important compliance with Synthroid is and that she will require labs in 4 to 6 weeks. - TIME SPENT Time Spent in Discharge (Minutes): 32"
[2020-04-14 13:48] VITALS: BP 118/68
[2020-04-15 12:54] LABS: HEPATITIS A IGM NON-REACTIVE (NON-REACTIVE); HEPATITIS B SURFACE ANTIGEN NON-REACTIVE (NON-REACTIVE); HEPATITIS C ANTIBODY REACTIVE (NON-REACTIVE)
== END 2020-04-14 14:42 | disposition home or self-care (01) ==
LOC: EDUNIT# → ED 14:56 → MS2 16:09
PROVIDERS: ADMIT Internal Medicine; ATTEND Internal Medicine
DX: M62.82 Rhabdomyolysis (principal); N17.9 Acute kidney failure, unspecified; F15.129 Other stimulant abuse with intoxication, unspecified; E03.9 Hypothyroidism, unspecified; T43.621A Poisoning by amphetamines, accidental (unintentional), initial encounter; G92 Toxic encephalopathy; R74.0 Nonspecific elevation of levels of transaminase and lactic acid dehydrogenase [LDH]; F17.210 Nicotine dependence, cigarettes, uncomplicated; R82.5 Elevated urine levels of drugs, medicaments and biological substances; K02.9 Dental caries, unspecified; Y92.230 Patient room in hospital as the place of occurrence of the external cause; Y92.9 Unspecified place or not applicable
CPT/HCPCS: 36415; 80048; 80053; 80074; 80076; 80306; 80307; 80320; 80329; 81003; 81025; 82533; 82550; 83690; 83735; 84100; 84439; 84443; 85025; 96361; 96372; 96374; 96376; 99285; A9270; G0378; J2060; J7120; 81001; 87086

== ENCOUNTER 2020-10-22 03:48 | Emergency (ER) | payer MEDICAID ==
[2020-10-22] MEDS ORDERED: BACITRACIN ZINC OINT 1 PACKET TOP STA (04:33)
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
[2020-10-22 05:34] VITALS: BP 119/70
== END 2020-10-22 04:45 | disposition home or self-care (01) ==
LOC: EDUNIT# → ED 03:48
DX: S61.412A Laceration without foreign body of left hand, initial encounter (principal); W26.0XXA Contact with knife, initial encounter; F17.200 Nicotine dependence, unspecified, uncomplicated
CPT/HCPCS: 99282; 99283; A9270

== ENCOUNTER → 2020-10-22 | Outpatient (CLI) | payer MEDICAID | END | disposition critical access hospital (66) | LOC: EMS 03:30 | PROVIDERS: ATTEND Surgery | DX: S61.412A Laceration without foreign body of left hand, initial encounter (principal); W26.0XXA Contact with knife, initial encounter; Y93.89 Activity, other specified | CPT/HCPCS: A0425; A0429; A0999 ==

== ENCOUNTER 2020-12-30 16:32 | Emergency (ER) | payer MEDICAID ==
[2020-12-30] MEDS ORDERED: SODIUM CHLORIDE 0.9% 1,000 ML IV STA (16:57)
--- NOTE | 2020-12-30 17:02 | ED Physician Documentation ---
History of Present Illness - Stated complaint Stated Complaint: BILAT ARM WOUNDS - Chief complaint Chief Complaint: Wound - History obtained from History obtained from: Patient - History of Present Illness Timing: How many days ago (several) Pain level max: 5 Pain level now: 4 - Additonal information Additional information: Patient is a 35-year-old female who presents to the emergency department bilateral arm swelling and pain. She uses heroin right rarely and injects into her arms. She states over the past several days it has become increasingly red and swollen bilaterally. No fevers. No chills. Nothing makes it better or worse. Review of Systems Ten Systems: 10 systems reviewed and negative Constitutional: denies: Fever, Chills Ears: denies: Ear pain Nose: denies: Rhinorrhea / runny nose, Congestion Throat: denies: Sore throat Cardiac: denies: Chest pain / pressure Respiratory: denies: Cough GI: denies: Nausea, Vomiting, Diarrhea Skin: denies: Rash Musculoskeletal: denies: Neck pain, Back pain Neurologic: denies: Headache PD PAST MEDICAL HISTORY - Past Medical History Past Medical History: Yes Psych: Anxiety - Past Surgical History Past Surgical History: Yes HEENT: Tonsil/Adenoidectomy - Present Medications Home Medications: Ambulatory Orders Medication Instructions Recorded Confirmed Sulfamethox/Trimeth 800/160 1 each PO BID #20 tablet 12/30/20 [Bactrim Ds 800/160] cephALEXin [Keflex] 500 mg PO Q6H #40 capsule 12/30/20 - Allergies Allergies/Adverse Reactions: Allergies Allergy/AdvReac Type Severity Reaction Status Date / Time tramadol Allergy Rash Verified 12/30/20 16:36 - Social History Does the pt smoke?: Yes Smoking Status: Current every day smoker Does the pt drink ETOH?: Yes Does the pt have substance abuse?: Yes Substance Use and Type: Meth, Heroin PD ED PE NORMAL - Vitals Vital signs reviewed: Yes - General General: Alert and oriented X 3, No acute distress - HEENT HEENT: Moist mucous membranes - Neck Neck: Supple, no meningeal sign - Cardiac Cardiac: RRR, Strong equal pulses - Respiratory Respiratory: No respiratory distress, Clear bilaterally - Abdomen Abdomen: Soft, Non tender, Non distended - Derm Derm: Warm and dry - Extremities Extremities: Other - Neuro Neuro: Alert and oriented X 3 - Psych Psych: Normal mood, Normal affect - Free text exam Free text exam: Right upper extremity is a firm swollen vein from the right wrist to the right antecubital fossa. There is diffuse swelling and tenderness about this vein. Hands are purple in color. Swelling present. Neurovascularly intact. The patient's left upper extremity is swollen and cordlike along the vein from the antecubital fossa to the wrist as well. There is a small raised area approximately 1 x 1 cm, indurated. not fluctuant. Neurovascularly intact. Results - Vitals Vitals: Vital Signs - 24 hr 12/30/20 12/30/20 16:36 20:21 Temperature 98.2 C H 36.4 C L Heart Rate 75 77 Respiratory 18 20 Rate Blood Pressure 103/84 H 116/82 H O2 Saturation 99 99 Oxygen O2 Source Room air - Labs Labs: Laboratory Tests 12/30/20 12/30/20 12/30/20 17:29 17:29 17:29 WBC 9.0 RBC 4.00 L Hgb 12.6 Hct 38.9 MCV 97.3 MCH 31.5 H MCHC 32.4 RDW 13.9 Plt Count 264 MPV 8.8 Neut # (Auto) 5.3 Lymph # (Auto) 3.0 [place] # (Auto) 0.5 Eos # (Auto) 0.0 Baso # (Auto) 0.1 Absolute Nucleated RBC 0.00 Nucleated RBC % 0.0 ESR 51 H Sodium 133 L Potassium 4.6 Chloride 90 L Carbon Dioxide 30 Anion Gap 13.0 BUN 18 Creatinine 1.3 H Estimated GFR (MDRD) 47 L Glucose 98 Lactic Acid Calcium 9.8 Total Bilirubin 0.3 AST 81 H ALT 61 H Alkaline Phosphatase 71 Total Creatine Kinase 1249 H* C-Reactive Protein 1.4 H Total Protein 8.5 H Albumin 4.4 Globulin 4.1 Albumin/Globulin Ratio 1.1 12/30/20 17:29 WBC RBC Hgb Hct MCV MCH MCHC RDW Plt Count MPV Neut # (Auto) Lymph # (Auto) [place] # (Auto) Eos # (Auto) Baso # (Auto) Absolute Nucleated RBC Nucleated RBC % ESR Sodium Potassium Chloride Carbon Dioxide Anion Gap BUN Creatinine Estimated GFR (MDRD) Glucose Lactic Acid 1.3 Calcium Total Bilirubin AST ALT Alkaline Phosphatase Total Creatine Kinase C-Reactive Protein Total Protein Albumin Globulin Albumin/Globulin Ratio - Rads (name of study) Duplex ultrasound bilateral upper extremity Radiology: Prelim report reviewed, EMP read contemporaneously, See rad report (No DVT) PD MEDICAL DECISION MAKING - ED course Complexity details: reviewed results, re-evaluated patient, considered differential, d/w patient ED course: No abscesses. No DVT on ultrasound. Given IV antibiotics. Will place on oral antibiotics for home. Discussed stopping drug use and rehab. Patient did receive resources. She is not to go to rehab tonight. Patient is afebrile. Well-appearing, nontoxic. Patient counseled regarding signs and symptoms for which I believe and urgent re-evaluation would be necessary. Patient with good understanding of and agreement to plan and is comfortable going home at this time This document was made in part using voice recognition software. While efforts are made to proofread this document, sound alike and grammatical errors may occur. Departure - Departure Disposition: 01 Home, Self Care Clinical Impression: Heroin abuse Cellulitis Qualifiers: Site of cellulitis: extremity Site of cellulitis of extremity: upper extremity Laterality: unspecified laterality Qualified Code(s): L03.119 - Cellulitis of unspecified part of limb Condition: Good Instructions: ED Infec Skin Cellulitis, ED Narcotic Abuse Follow-Up: your,doctor in 3-5 days for wound check [Other] Prescriptions: Sulfamethox/Trimeth 800/160 [Bactrim Ds 800/160] 1 each PO BID #20 tablet cephALEXin [Keflex] 500 mg PO Q6H #40 capsule Comments: Take all antibiotics until gone. Return if you worsen. Follow-up with your doctor for further care. If you are not improving over the next 2 to 3 days, you need to be reevaluated here or with your doctor. If you worsen, develop fevers or worsening symptoms, please return for further evaluation. You are also given resources tonight regarding recovery from drug addiction.
[2020-12-30 17:35] LABS: BASOPHILS # (AUTO) 0.1 10^3/uL (0.0-0.1); BASOPHILS % (AUTO) 0.9 %; EOSINOPHILS % (AUTO) 0.3 %; HGB - HEMOGLOBIN 12.6 g/dL (12.0-16.0); LYMPHOCYTES % (AUTO) 33.7 %; MEAN CORPUSCULAR HEMOGLOBIN 31.5 pg (27.0-31.0); MEAN CORPUSCULAR HGB CONC 32.4 g/dL (32.0-36.0); MEAN CORPUSCULAR VOLUME 97.3 fL (81.0-99.0); MEAN PLATELET VOLUME 8.8 fL (7.9-10.8); MONOCYTES # (AUTO) 0.5 10^3/uL (0.0-1.0); MONOCYTES % (AUTO) 5.3 %; NEUTROPHILS # (AUTO) 5.3 10^3/uL (1.5-6.6); NEUTROPHILS % (AUTO) 58.7 %; PLT - PLATELET COUNT 264 10^3/uL (130-450); RED CELL DISTRIBUTION WIDTH 13.9 % (12.0-15.0)
[2020-12-30] MEDS ORDERED: AMPICILLIN/SULBACTAM 3 GM in SODIUM CHLORIDE 0.9% MINIBAG 100 ML IV STA (18:08)
[2020-12-30] MEDS ORDERED: VANCOMYCIN INJ 1 GM in SODIUM CHLORIDE 0.9% 500 ML IV STA (18:08)
[2020-12-30 18:12] LABS: ALBUMIN 4.4 g/dL (3.2-5.5); ALBUMIN/GLOBULIN RATIO 1.1 (1.0-2.2); BILIRUBIN,TOTAL 0.3 mg/dL (0.2-1.0); CALCIUM 9.8 mg/dL (8.5-10.3); CREATININE 1.3 mg/dL (0.4-1.0); CRP - C-REACTIVE PROTEIN 1.4 mg/dL (0-1.0); TOTAL PROTEIN 8.5 g/dL (6.7-8.2)
--- NOTE | 2020-12-30 20:19 | Ultrasound Report ---
PROCEDURE: Duplex Ext Veins Bilateral INDICATIONS: Upper extremity edema TECHNIQUE: Real-time imaging, as well as color and pulse Doppler interrogation, were performed of the deep veins of both arms. COMPARISON: None FINDINGS: The deep veins are normally compressible, and free of intraluminal thrombus. Color and pu lse Doppler demonstrate normal phasic intravascular flow. There is normal augmentation response to d istal compression maneuver. IMPRESSION: Deep venous thrombosis. Reviewed by: Yudelka Burdick MD on 12/30/2020 8:17 PM PST Approved by: Yudelka Burdick MD on 12/30/2020 8:17 PM PST Station ID: [id number]
[2020-12-30 22:50] VITALS: BP 124/89
== END 2020-12-30 22:56 | disposition home or self-care (01) ==
LOC: ED 16:32
DX: L03.114 Cellulitis of left upper limb (principal); L03.113 Cellulitis of right upper limb; F11.10 Opioid abuse, uncomplicated; F17.200 Nicotine dependence, unspecified, uncomplicated
CPT/HCPCS: 80053; 82550; 83605; 85025; 85651; 86140; 87040; 93970; 96365; 96366; 96367; 99284; J3370; 36415

== ENCOUNTER 2023-07-27 14:20 | Emergency (ER) | payer MEDICAID ==
[2023-07-28 10:57] VITALS: BP 115/83; O2SAT 96
== END 2023-07-27 17:21 | disposition left against medical advice (07) ==
LOC: ED 14:20
DX: Z53.21 Procedure and treatment not carried out due to patient leaving prior to being seen by health care provider (principal)

== ENCOUNTER 2023-07-29 12:30 | Emergency (ER) | payer MEDICAID ==
--- NOTE | 2023-07-29 14:23 | ED Physician Documentation ---
PD HPI UPPER EXT INJURY - Stated complaint Stated Complaint: LT ARM SWELLING, PX - Chief complaint Chief Complaint: Ext Problem - History obtained from History obtained from: Patient - History of Present Illness Location: Left, Forearm Type of injury: Laceration (she had a small laceration of palm a week ago that is healing. No known injury to forearm. Has redness and swelling increasing left mid forearm now up to elbow area and red streak to back of upper arm.) Worsened by: Moving, Palpating Associated symptoms: No: Weakness, Numbness Similar symptoms before: Diagnosis (has had skin infections in the past.) Review of Systems Constitutional: denies: Fever, Chills, Myalgias Neurologic: denies: Focal weakness, Numbness PD PAST MEDICAL HISTORY - Past Medical History Psych: Anxiety, Bipolar disorder - Past Surgical History Past Surgical History: Yes HEENT: Tonsil/Adenoidectomy - Present Medications Home Medications: Ambulatory Orders Medication Instructions Recorded Confirmed Emollient Cream [Eucerin] 1 applic TOP BID #57 gm 07/29/23 Mupirocin 2% Oint [Bactroban 2% 1 applic TOP TID #15 gm 07/29/23 Oint] Naproxen 500 mg PO BID #20 tab 07/29/23 cephALEXin [Keflex] 500 mg PO QID #28 cap 07/29/23 - Allergies Allergies/Adverse Reactions: Allergies Allergy/AdvReac Type Severity Reaction Status Date / Time quetiapine [From Seroquel] Allergy Dizziness Verified 07/27/23 14:34 risperidone [From Risperdal] Allergy Rash Verified 07/29/23 12:41 tramadol Allergy Rash Verified 07/27/23 14:34 - Social History Does the pt smoke?: Yes Smoking Status: Current every day smoker Does the pt drink ETOH?: Yes Does the pt have substance abuse?: Yes PD ED PE NORMAL - Vitals Vital signs reviewed: Yes - General General: Alert and oriented X 3, Well developed/nourished - Derm Derm: Warm and dry, Other (right palm with small 3-4 mm lump, without redness but mild tender. Bedside US showed tissue c/w scar tissue. No FB noted nor f luid. Right forearm in redness area with tissue edema. No air, nor fluid collections (no abscess, but c/w cellulitis). redness with warmth and tender ulnar forearm/elbow.) Results - Vitals Vitals: Oxygen O2 Source Room air PD Medical Decision Making - ED course Complexity details: considered differential (has redness and swelling ulnar forearm with tendenress. No fluctuant areas. Redness extends to distal to elbow. No joint effusion. Mild red streak up to mid upper arm. No nodes nor tenderness in axilla. wound c/w cellulitis and no apparent abscess at this time. ), d/w patient Departure - Departure Disposition: 01 Home, Self Care Clinical Impression: Cellulitis of forearm, left Condition: Stable Record reviewed to determine appropriate education?: Yes Instructions: ED Infec Skin Cellulitis Prescriptions: Mupirocin 2% Oint [Bactroban 2% Oint] 1 applic TOP TID #15 gm Emollient Cream [Eucerin] 1 applic TOP BID #57 gm cephALEXin [Keflex] 500 mg PO QID #28 cap Naproxen 500 mg PO BID #20 tab Comments: The redness and swelling and tenderness on the forearm do appear to be a skin infection called cellulitis. On ultrasound I do not see any localized fluid pockets to suggest an abscess. I do not see anything that needs incision or draining. The local area of swelling in the palm looks to be scar tissue and I did not see any obvious foreign bodies or fluid collection. We will treat the cellulitis/arm skin infection with cephalexin 4 times daily for the next week. You can treat the inflammation with naproxen anti- inflammatory twice daily as well. To that add Tylenol every 4-6 hours if needed for pain. Recheck if not improving well over the next few days and resolved by 4 to 6 days. You do have a lot of dry skin and skin irritation around the fingers and hands. Soak or at least cleanse with water and some soap a couple of times daily and then apply the Eucerin cream lightly to the area to help soften the skin. I do not think the lesions in the fingers or hand relate to the infection in the forearm. I sent your prescriptions to your preferred pharmacy. Forms: PCP List Discharge Date/Time: 07/29/23 15:40
[2023-07-29] MEDS ORDERED: HYDROcod/ACETAM 5/325 MG TABLET PO STA (15:10)
[2023-07-29] MEDS ORDERED: IBUPROFEN 600 MG TABLET PO STA (15:10)
[2023-07-29] MEDS ORDERED: cephALEXin 250 MG CAPSULE PO STA (15:11)
[2023-07-29 16:00] VITALS: BP 110/78; O2SAT 97
== END 2023-07-29 15:40 | disposition home or self-care (01) ==
LOC: ED 12:30
DX: L03.114 Cellulitis of left upper limb (principal); F17.200 Nicotine dependence, unspecified, uncomplicated
CPT/HCPCS: 99282; 99283; A9270

== ENCOUNTER 2024-05-20 23:05 | Outpatient (CLI) | payer MEDICAID | END 2024-05-20 23:59 | disposition EMS.NT | LOC: EMS 23:05 | DX: T40.411A Poisoning by fentanyl or fentanyl analogs, accidental (unintentional), initial encounter (principal) ==